=== PATIENT | female | born 1985 | race Caucasian/White ===

== ENCOUNTER → 2021-02-08 | Outpatient (CLI) | payer OTHER | LOC: MHCPAIN 13:29 | DX: M25.551 Pain in right hip (principal); M53.3 Sacrococcygeal disorders, not elsewhere classified; M47.816 Spondylosis without myelopathy or radiculopathy, lumbar region | CPT/HCPCS: G0463 ==

== ENCOUNTER → 2021-04-10 | Outpatient (CLI) | payer OTHER | LOC: MHCPAIN 12:19 | DX: M47.818 Spondylosis without myelopathy or radiculopathy, sacral and sacrococcygeal region (principal); M53.3 Sacrococcygeal disorders, not elsewhere classified; M46.1 Sacroiliitis, not elsewhere classified | CPT/HCPCS: G0260; G0463; J1040; Q9967 ==

== ENCOUNTER → 2021-04-25 | Outpatient (CLI) | payer OTHER | LOC: MHCPAIN 08:39 | DX: M25.551 Pain in right hip (principal); M41.86 Other forms of scoliosis, lumbar region; M54.5 Low back pain; M53.3 Sacrococcygeal disorders, not elsewhere classified | CPT/HCPCS: G0463 ==

== ENCOUNTER → 2021-09-04 | Outpatient (CLI) | payer OTHER | LOC: MHCPAIN 14:14 | DX: M53.3 Sacrococcygeal disorders, not elsewhere classified (principal); M54.50 Low back pain, unspecified; M79.18 Myalgia, other site | CPT/HCPCS: G0463 ==

== ENCOUNTER → 2021-09-13 | Outpatient (CLI) | payer OTHER | LOC: COL.RAD 08-28 14:00 | DX: M67.813 Other specified disorders of tendon, right shoulder (principal) ==

== ENCOUNTER → 2021-09-21 | Outpatient (CLI) | payer OTHER | LOC: MHCPAIN 08:37 | DX: M53.3 Sacrococcygeal disorders, not elsewhere classified (principal); M47.817 Spondylosis without myelopathy or radiculopathy, lumbosacral region | CPT/HCPCS: G0260; J1040; Q9967 ==

== ENCOUNTER 2021-10-25 09:21 | Day surgery (SDC) | payer OTHER ==
[~2021-10-25] VITALS: Ht 157.5 cm; Wt 68.6 kg
[2021-10-25] MEDS ORDERED: MAG-OX 400400 MG/TAB PO (09:48)
[2021-10-25] MEDS ORDERED: LIORESAL 1010 MG/TAB PO (09:48)
[2021-10-25] MEDS ORDERED: ZOLOFT 100MG100 MG PO (09:48)
[2021-10-25] MEDS ORDERED: BENTYL 10MG10 MG/CAP PO (09:49)
[2021-10-25] MEDS ORDERED: INDERAL LA 80MG80 MG PO (09:49)
[2021-10-25] MEDS ORDERED: MIRALAX510G PO (09:50)
[2021-10-25] MEDS ORDERED: NURTEC ODT75 MG PO (09:50)
[2021-10-25] MEDS ORDERED: B-12 500 MCG PO (09:51)
[2021-10-25 09:52] VITALS: BP 108/83; PULSE 80; TEMP 97.9
[2021-10-25] MEDS ORDERED: FOLIC ACID 40400 MCG PO (09:52)
[2021-10-25 11:00] VITALS: BP 112/76; PULSE 71; TEMP 97.1
--- NOTE | 2021-10-25 11:00 | NUR ---
PATIENT TRANSPORTED PER CART FROM ENDO SUITE TO BAY 6 ACCOMPANIED BY ENDO RN. PATIENT AMBULATED FROM CART TO CHAIR WITH STEADY GAIT AND 1 ASSIST. PATIENT TALKS WITH . MONITORS APPLIED. VSS ON ROOM AIR. VERBAL REPORT RECEIVED. DR BRUNO IN ROOM AND SPEAKS WITH PATIENT .
[2021-10-25 11:15] VITALS: BP 108/78; PULSE 66
--- NOTE | 2021-10-25 11:15 | NUR ---
VSS ON ROOM AIR. PATIENT TOLERATES WATER AND MUFFIN WITHOUT PROBLEMS. PATIENT DENIES DISCOMFORT AND NAUSEA. TALKS WITH AND STAFF.
--- NOTE | 2021-10-25 11:27 | NUR ---
VSS ON ROOM AIR. PATIENT STATES READY TO GO HOME. DENIES PROBLEMS. IV DC'D WITH CATHETER TIP INTACT. PRESSURE AND BANDAGE APPLIED. 1130 DISCHARGE INSTRUCTIONS GIVEN VERBAL AND DISCHARGE PACKET PROVIDED. QUESTIONS ANSWERED AND PATIENT AND VOICE UNDERSTANDING. PATIENT CHANGES INTO STREET CLOTHES 1137 PATIENT DISCHARGED PER WHEEL CHAIR ACCOMPANIED BY AMB RN TO PRIVATE VECHILE DRIVEN BY .
[2021-10-25 11:30] VITALS: BP 114/71; PULSE 62
== END 2021-10-25 11:37 | disposition home or self-care (01) ==
LOC: SDCO 09:21
DX: R14.0 Abdominal distension (gaseous) (principal); R10.9 Unspecified abdominal pain; K59.00 Constipation, unspecified; R19.7 Diarrhea, unspecified; F41.1 Generalized anxiety disorder; Z79.899 Other long term (current) drug therapy; Z83.79 Family history of other diseases of the digestive system
CPT/HCPCS: J2704; J7120

== ENCOUNTER → 2022-01-08 | Outpatient (CLI) | payer OTHER ==
[~2022-01-08] MED LIST: B-12 500 MCG PO; BENTYL 10MG10 MG/CAP PO; FOLIC ACID 40400 MCG PO; INDERAL LA 80MG80 MG PO; LIORESAL 1010 MG/TAB PO; MAG-OX 400400 MG/TAB PO; MIRALAX510G PO; NURTEC ODT75 MG PO; ZOLOFT 100MG100 MG PO
== END ==
LOC: MHCPAIN 09:21
DX: M53.3 Sacrococcygeal disorders, not elsewhere classified (principal); M54.50 Low back pain, unspecified; M25.551 Pain in right hip; M79.18 Myalgia, other site
CPT/HCPCS: G0463

== ENCOUNTER → 2022-01-25 | Outpatient (CLI) | payer OTHER | LOC: MHCPAIN 08:06 | DX: M53.3 Sacrococcygeal disorders, not elsewhere classified (principal); M47.817 Spondylosis without myelopathy or radiculopathy, lumbosacral region; M79.18 Myalgia, other site | CPT/HCPCS: G0260; J1040; Q9967 ==

== ENCOUNTER → 2023-08-29 | Outpatient (CLI) | payer OTHER | LOC: MHCPAIN 09:36 | DX: M47.817 Spondylosis without myelopathy or radiculopathy, lumbosacral region (principal) | CPT/HCPCS: J0665 ==

== ENCOUNTER → 2023-09-10 | Outpatient (CLI) | payer OTHER | LOC: MHCPAIN 09:28 | DX: M25.551 Pain in right hip (principal); M54.50 Low back pain, unspecified; M53.3 Sacrococcygeal disorders, not elsewhere classified | CPT/HCPCS: G0463 ==